=== PATIENT | female | born 1930 | race African-American/Black ===

== ENCOUNTER 2016-09-13 11:21 | Inpatient (IN) | payer OTHER ==
[~2016-09-13] VITALS: Ht 175.3 cm; Wt 104.7 kg
[~2016-09-13 11:21] MED LIST: AMARYL1 MG PO; ASPIR 8181 M1 PO; CALCIUM + D TA1 EACH PO; COZAAR100 MG PO; CRESTOR20 MG PO; GLIMEPIRIDE2 MG PO; HYDROMET SYRUP480 ML PO; LUMIGAN 0.50 DROP/2. BOTH EYES; METFORMIN HCL750 MG PO; METOPROLOL SUC100 MG PO; NIFEDIAC CC60 MG PO; PRILOSEC20 MG PO; PROAIR HFA8.5 GM IH; SENNA8.6 MG PO; SIMVASTATIN80 M1 PO; SPIRIVA1 INHALATI IH; TOPROL XL50 MG PO; TRIAMTERENE-HC1 EAC1 PO; VITAMIN C250 MG PO; VITAMIN D31000 UNI2 PO; ZETIA10 MG PO; ZYPREXA7.5 MG PO
[2016-09-13 12:20] LABS: EOSINOPHIL (%) 1.9 % (0-5); EOSINOPHIL COUNT 0.1 K/uL (0-0.3); HEMATOCRIT 37.3 % (36.0-46.0); IMMATURE GRANULOCYTE (%) 0.1 % (0.0-0.7); LYMPHOCYTE COUNT 2.3 K/uL (1.0-2.8); MCH 28.2 PG (29.0-34.0); MCHC 32.2 G/DL (30.0-36.0); MCV 87.8 FL (83-99); MEAN PLAT.VOLUME 11.7 uM^3 (9.5-12.4); MONOCYTE (%) 10.2 % (3-12); MONOCYTE COUNT 0.7 K/uL (0-0.8); NEUTROPHIL (%) 55.9 % (45-76); PLATELET COUNT 165 K/uL (156-360); RBC DIS.WIDTH-CV 16.3 % (11.8-14.6); RBC DIS.WIDTH-SD 52.4 % (39-53); RED BLOOD COUNT 4.25 M/uL (3.80-5.20); WHITE BLOOD COUNT 7.2 K/uL (4.1-10.2)
[2016-09-13 12:32] LABS: D-DIMER ELISA 1.64 mg/L FEU (< 0.57)
[2016-09-13 12:33] LABS: CHLORIDE 107 mEq/L (99-109); POTASSIUM 3.9 mEq/L (3.7-5.4); SODIUM 142 mEq/L (136-147)
[2016-09-13 12:34] LABS: MAGNESIUM 2.1 mg/dL (1.3-2.7)
[2016-09-13 12:36] LABS: GLUCOSE 160 mg/dL (70-99)
[2016-09-13 12:37] LABS: ANION GAP 9 MEQ/L (2-14)
[2016-09-13 12:38] LABS: TOTAL BILIRUBIN 0.5 mg/dL (0.0-1.0)
[2016-09-13 12:39] LABS: ALKALINE PHOSPHATASE 58 IU/L (3-129)
[2016-09-13 12:40] LABS: GFR ESTIMATE (CALCULATED) > 59 mL/min/
[2016-09-13 12:41] LABS: UREA NITROGEN (BUN) 18 mg/dL (9-23)
[2016-09-13 12:46] LABS: TROP-I INTERPRETATION NEGATIVE; TROPONIN-I < 0.01 ng/mL (0.0-0.30)
[2016-09-13] MEDS ORDERED: CRESTOR40 MG PO (14:56)
[2016-09-13] MEDS ORDERED: GLIMEPIRIDE4 MG PO (14:57)
[2016-09-13] MEDS ORDERED: ZYPREXA5 MG PO (14:57)
[2016-09-13] MEDS ORDERED: ONE-A-DAY ESSE1 EAC1 PO (14:58)
[2016-09-13] MEDS ORDERED: TRADJENTA5 MG PO (14:58)
[2016-09-13] MEDS ORDERED: NIFEDIPINE ER60 MG PO (14:58)
[2016-09-13] MEDS ORDERED: KLOR-CON M1010 MEQ PO (14:58)
[2016-09-13] MEDS ORDERED: KLOR-CON M2020 MEQ PO (15:04)
[2016-09-13] MEDS ORDERED: FUROSEMIDE40 MG PO (15:04)
[2016-09-13 17:41] LABS: POINT-OF-CARE METER ID UU13113781
[2016-09-13 18:27] LABS: TROP-I INTERPRETATION NEGATIVE; TROPONIN-I 0.02 ng/mL (0.0-0.30)
[2016-09-13 19:15] VITALS: BP 155/68
[2016-09-13 21:00] LABS: POINT-OF-CARE METER ID UU13113781
[2016-09-13 23:15] VITALS: BP 124/64
[2016-09-14 01:34] LABS: TROP-I INTERPRETATION NEGATIVE; TROPONIN-I 0.01 ng/mL (0.0-0.30)
[2016-09-14 03:40] VITALS: BP 161/75
[2016-09-14 07:17] LABS: EOSINOPHIL (%) 2.3 % (0-5); EOSINOPHIL COUNT 0.2 K/uL (0-0.3); IMMATURE GRANULOCYTE (%) 0.1 % (0.0-0.7); INSTRUMENT ABS NEUTROPHIL CT 3.6 K/uL; LYMPHOCYTE COUNT 2.4 K/uL (1.0-2.8); MCH 29.1 PG (29.0-34.0); MCHC 32.9 G/DL (30.0-36.0); MCV 88.6 FL (83-99); MEAN PLAT.VOLUME 11.9 uM^3 (9.5-12.4); MONOCYTE (%) 11.7 % (3-12); MONOCYTE COUNT 0.8 K/uL (0-0.8); NEUTROPHIL (%) 51.2 % (45-76); NEUTROPHIL COUNT 3.6 K/uL (1.8-6.4); PLATELET COUNT 171 K/uL (156-360); RBC DIS.WIDTH-CV 16.4 % (11.8-14.6); RED BLOOD COUNT 4.29 M/uL (3.80-5.20)
[2016-09-14 07:34] VITALS: BP 162/72
[2016-09-14 07:45] LABS: ANION GAP 8 MEQ/L (2-14); CHLORIDE 107 MEQ/L (99-109); GFR ESTIMATE (CALCULATED) > 59 mL/min/; POTASSIUM 3.7 MEQ/L (3.7-5.4); SAMPLE HEMOLYSIS CHECK 0; SAMPLE ICTERIC CHECK 0; SAMPLE LIPEMIA CHECK 0; SODIUM 145 MEQ/L (136-147); UREA NITROGEN (BUN) 13 mg/dL (9-23)
[2016-09-14 07:47] LABS: GLUCOSE 91 mg/dL (70-99)
[2016-09-14 07:59] LABS: TROP-I INTERPRETATION NEGATIVE; TROPONIN-I 0.02 ng/mL (0.0-0.30)
[2016-09-14 08:46] LABS: Estimated Average Glucose 154 mg/dL (70-123)
[2016-09-14 11:27] LABS: POINT-OF-CARE METER ID UU13113698
[2016-09-14 11:51] VITALS: BP 171/74
[2016-09-14 16:12] LABS: POINT-OF-CARE METER ID UU13113781
[2016-09-14 16:28] VITALS: BP 182/79
[2016-09-14 19:34] VITALS: BP 159/67
[2016-09-14 21:41] LABS: METH RESISTANT S AUREUS PCR NEGATIVE (NEGATIVE)
[2016-09-14 21:44] LABS: PROBE CHECK PASS; SPECIMEN PROCESSING CONTROL PASS
[2016-09-14 23:14] VITALS: BP 130/62
[2016-09-15 04:26] VITALS: BP 132/63
[2016-09-15 05:57] LABS: EOSINOPHIL (%) 2.5 % (0-5); EOSINOPHIL COUNT 0.2 K/uL (0-0.3); HEMATOCRIT 37.6 % (36.0-46.0); IMMATURE GRANULOCYTE (%) 0.1 % (0.0-0.7); INSTRUMENT ABS NEUTROPHIL CT 3.3 K/uL; LYMPHOCYTE COUNT 2.4 K/uL (1.0-2.8); MCH 28.1 PG (29.0-34.0); MCHC 32.2 G/DL (30.0-36.0); MCV 87.2 FL (83-99); MEAN PLAT.VOLUME 11.4 uM^3 (9.5-12.4); MONOCYTE (%) 13.9 % (3-12); NEUTROPHIL (%) 47.9 % (45-76); NEUTROPHIL COUNT 3.3 K/uL (1.8-6.4); PLATELET COUNT 168 K/uL (156-360); RBC DIS.WIDTH-CV 15.9 % (11.8-14.6); RBC DIS.WIDTH-SD 51.4 % (39-53); RED BLOOD COUNT 4.31 M/uL (3.80-5.20); WHITE BLOOD COUNT 6.9 K/uL (4.1-10.2)
[2016-09-15 06:29] LABS: ALKALINE PHOSPHATASE 61 IU/L (3-129); ANION GAP 9 MEQ/L (2-14); CHLORIDE 103 MEQ/L (99-109); GFR ESTIMATE (CALCULATED) > 59 mL/min/; GLUCOSE 98 mg/dL (70-99); POTASSIUM 3.7 MEQ/L (3.7-5.4); SAMPLE HEMOLYSIS CHECK 0; SAMPLE ICTERIC CHECK 0; SAMPLE LIPEMIA CHECK 0; SODIUM 143 MEQ/L (136-147); TOTAL BILIRUBIN 0.6 MG/DL (0.0-1.0); UREA NITROGEN (BUN) 20 mg/dL (9-23)
[2016-09-15 08:18] LABS: POINT-OF-CARE METER ID UU13113781; POINT-OF-CARE USER ID ENVKC36
[2016-09-15 08:34] VITALS: BP 189/88
[2016-09-15 11:52] LABS: POINT-OF-CARE METER ID UU13113781; POINT-OF-CARE USER ID ENVKC36
[2016-09-15 12:00] VITALS: BP 175/80
[2016-09-15 12:49] LABS: POINT-OF-CARE METER ID UU13113698; POINT-OF-CARE USER ID ENVKC36
[2016-09-15 16:38] LABS: POINT-OF-CARE METER ID UU13113698; POINT-OF-CARE USER ID ENVKC36
[2016-09-15 19:30] VITALS: BP 170/73
[2016-09-15 21:37] LABS: POINT-OF-CARE METER ID UU14174216
[2016-09-16 00:10] VITALS: BP 155/70
[2016-09-16 04:00] VITALS: BP 141/75
[2016-09-16 04:49] LABS: CHLORIDE 105 mEq/L (99-109); SODIUM 143 mEq/L (136-147)
[2016-09-16 04:50] LABS: GLUCOSE 120 mg/dL (70-99)
[2016-09-16 04:52] LABS: ANION GAP 11 MEQ/L (2-14)
[2016-09-16 04:54] LABS: GFR ESTIMATE (CALCULATED) > 59 mL/min/
[2016-09-16 04:55] LABS: UREA NITROGEN (BUN) 21 mg/dL (9-23)
[2016-09-16 06:48] LABS: POINT-OF-CARE METER ID UU13113698
[2016-09-16 07:44] VITALS: BP 110/69; BP 177/76
[2016-09-16 07:51] LABS: POINT-OF-CARE METER ID UU13113698; POINT-OF-CARE USER ID ENVKC36
[2016-09-16 11:43] VITALS: BP 142/66
[2016-09-16 12:00] LABS: POINT-OF-CARE METER ID UU13113781; POINT-OF-CARE USER ID ENVKC36
[2016-09-16 16:00] VITALS: BP 131/68
[2016-09-16 16:22] LABS: POINT-OF-CARE METER ID UU13113781; POINT-OF-CARE USER ID ENVKC36
[2016-09-16 19:15] VITALS: BP 168/74
[2016-09-16 21:04] LABS: POINT-OF-CARE METER ID UU13113781
[2016-09-17 00:20] VITALS: BP 178/80
[2016-09-17 04:30] VITALS: BP 160/74
[2016-09-17 05:49] LABS: EOSINOPHIL COUNT 0.2 K/uL (0-0.3); HEMATOCRIT 39.3 % (36.0-46.0); IMMATURE GRANULOCYTE (%) 0.3 % (0.0-0.7); INSTRUMENT ABS NEUTROPHIL CT 4.1 K/uL; LYMPHOCYTE COUNT 2.4 K/uL (1.0-2.8); MCH 28.9 PG (29.0-34.0); MCHC 33.1 G/DL (30.0-36.0); MCV 87.3 FL (83-99); MEAN PLAT.VOLUME 11.6 uM^3 (9.5-12.4); MONOCYTE (%) 12.9 % (3-12); NEUTROPHIL (%) 52.2 % (45-76); NEUTROPHIL COUNT 4.1 K/uL (1.8-6.4); PLATELET COUNT 183 K/uL (156-360); RBC DIS.WIDTH-CV 16.2 % (11.8-14.6); RBC DIS.WIDTH-SD 51.4 % (39-53); WHITE BLOOD COUNT 7.8 K/uL (4.1-10.2)
[2016-09-17 06:13] LABS: ANION GAP 7 MEQ/L (2-14); CHLORIDE 105 MEQ/L (99-109); GFR ESTIMATE (CALCULATED) 55 mL/min/; GLUCOSE 136 mg/dL (70-99); SAMPLE HEMOLYSIS CHECK 0; SAMPLE ICTERIC CHECK 0; SAMPLE LIPEMIA CHECK 0; SODIUM 140 MEQ/L (136-147); UREA NITROGEN (BUN) 26 mg/dL (9-23)
[2016-09-17 08:07] LABS: POINT-OF-CARE METER ID UU13113781; POINT-OF-CARE USER ID NUTSLF44
[2016-09-17 09:00] VITALS: BP 177/80
[2016-09-17 11:46] LABS: POINT-OF-CARE USER ID NUTSLF44
[2016-09-17 12:00] VITALS: BP 175/80
[2016-09-17 18:10] LABS: POINT-OF-CARE METER ID UU13113819; POINT-OF-CARE USER ID 515036437
[2016-09-17 20:11] VITALS: BP 151/93
[2016-09-18] VITALS (8 sets, daily range): BP systolic 131–173; BP diastolic 69–100
[2016-09-18 05:25] LABS: EOSINOPHIL (%) 2.3 % (0-5); EOSINOPHIL COUNT 0.2 K/uL (0-0.3); HEMATOCRIT 40.8 % (36.0-46.0); IMMATURE GRANULOCYTE (%) 0.1 % (0.0-0.7); INSTRUMENT ABS NEUTROPHIL CT 4.1 K/uL; LYMPHOCYTE COUNT 1.7 K/uL (1.0-2.8); MCH 28.1 PG (29.0-34.0); MCHC 32.4 G/DL (30.0-36.0); MEAN PLAT.VOLUME 12.5 uM^3 (9.5-12.4); MONOCYTE (%) 12.6 % (3-12); MONOCYTE COUNT 0.9 K/uL (0-0.8); NEUTROPHIL (%) 59.7 % (45-76); NEUTROPHIL COUNT 4.1 K/uL (1.8-6.4); PLATELET COUNT 165 K/uL (156-360); RBC DIS.WIDTH-SD 51.1 % (39-53); RED BLOOD COUNT 4.69 M/uL (3.80-5.20); WHITE BLOOD COUNT 6.9 K/uL (4.1-10.2)
[2016-09-18 05:57] LABS: ALKALINE PHOSPHATASE 63 IU/L (3-129); ANION GAP 10 MEQ/L (2-14); CHLORIDE 103 MEQ/L (99-109); GFR ESTIMATE (CALCULATED) > 59 mL/min/; GLUCOSE 103 mg/dL (70-99); POTASSIUM 3.8 MEQ/L (3.7-5.4); SAMPLE HEMOLYSIS CHECK 0; SAMPLE ICTERIC CHECK 0; SAMPLE LIPEMIA CHECK 0; SODIUM 140 MEQ/L (136-147); TOTAL BILIRUBIN 0.5 MG/DL (0.0-1.0); UREA NITROGEN (BUN) 16 mg/dL (9-23)
[2016-09-18 08:00] LABS: POINT-OF-CARE METER ID UU13113781; POINT-OF-CARE USER ID ENVKC36
[2016-09-18 11:25] LABS: POINT-OF-CARE METER ID UU13113698; POINT-OF-CARE USER ID ENVKC36
[2016-09-18] MEDS ORDERED: TRIAMTERENE-HC1 EACH PO (11:34)
[2016-09-18] MEDS ORDERED: TYLOPHEN500 MG PO (11:41)
[2016-09-18 16:38] LABS: POINT-OF-CARE METER ID UU13113698; POINT-OF-CARE USER ID ENVKC36
[2016-09-18 21:29] LABS: POINT-OF-CARE METER ID UU14174216
[2016-09-19 05:06] VITALS: BP 123/72
[2016-09-19 06:58] VITALS: BP 183/90
[2016-09-19 07:57] LABS: POINT-OF-CARE METER ID UU13113781; POINT-OF-CARE USER ID ENVKC36
[2016-09-19] MEDS ORDERED: LIDOCAINE700 MG TD (09:57)
[2016-09-19 11:27] VITALS: BP 166/81
[2016-09-19 11:27] LABS: POINT-OF-CARE METER ID UU13113781; POINT-OF-CARE USER ID 515034806
== END 2016-09-19 14:08 | DRG 244 ==
LOC: EME 11:21 → 4EAST 14:31 → EDOF 14:31 → 4EAST 16:52
PROVIDERS: Emergency Medicine; Hospitalist; Student in an Organized Health Care Education/Training Program
DX: I44.1 Atrioventricular block, second degree (principal); I11.0 Hypertensive heart disease with heart failure; I50.9 Heart failure, unspecified; I27.2 Other secondary pulmonary hypertension; R00.1 Bradycardia, unspecified; I45.9 Conduction disorder, unspecified; I44.2 Atrioventricular block, complete; I10 Essential (primary) hypertension; E11.9 Type 2 diabetes mellitus without complications; E78.5 Hyperlipidemia, unspecified; F20.9 Schizophrenia, unspecified; F39 Unspecified mood [affective] disorder; I35.0 Nonrheumatic aortic (valve) stenosis; I44.7 Left bundle-branch block, unspecified; J44.9 Chronic obstructive pulmonary disease, unspecified; K21.9 Gastro-esophageal reflux disease without esophagitis; M17.11 Unilateral primary osteoarthritis, right knee; M25.40 Effusion, unspecified joint; Z74.01 Bed confinement status; Z87.891 Personal history of nicotine dependence; M25.519 Pain in unspecified shoulder; M54.2 Cervicalgia; R51 Headache; R55 Syncope and collapse
CPT/HCPCS: 70450; 71010; 71275; 73560; 80048; 80053; 81003; 82948; 83036; 83735; 83880; 84443; 84484; 84550; 85025; 85379; 87641; 93005; 93306; 94010; 94640; 94640 76; 94799; 97530 GP; 99202; 99281; 99285; C1785; C1892; C1894; C1898; J0360; J0461; J0690; J1644; J1815; J2250; J3010; J7030; J7050; S0020